=== PATIENT | male | born 1975 | race Caucasian/White ===

== ENCOUNTER 2017-12-30 00:32 | Emergency (ER) | payer OTHER, SELFPAY ==
[2017-12-30] MEDS ORDERED: Ketorolac Tromethamine 30 MG/ML VIAL ONE (00:57)
[2017-12-30 01:24] LABS: #Eosinphils 0.1 thou/uL (0.0-0.7); #Monocytes 0.6 thou/uL (0.11-0.59); #Neutrophils 6.7 thou/uL (1.40-6.50); %Basophils 0.3 % (0.0-1.0); %Eosinophils 1.1 % (0.0-10.0); %Lymphocytes 21.5 % (21.0-51.0); %Monocytes 6.7 % (0.0-10.0); %Neutrophils 70.3 % (42.0-75.0); Hemoglobin 16.2 g/dL (14.0-18.0); Mean Corpuscular HGB CONC 33.8 g/dL (32.0-36.0); Mean Corpuscular Hemoglobin 31.8 pg (27.0-31.0); Mean Platelet Volume 7.5 fL (7.4-10.4); Platelet Count 242 thou/uL (130-400); RBC Distribution Width 11.5 % (11.5-14.5); Red Blood Cell (RBC) Count 5.11 mill/uL (4.70-6.10); White Blood Cell (WBC) Count 9.5 thou/uL (4.8-10.8)
[2017-12-30 01:43] LABS: Bilirubin Negative (Negative); Blood, Urine Negative (Negative); Clarity CLEAR (Clear); Glucose, Urine (Dipstick) Negative (Negative); Leukocyte Negative (Negative); Nitrite Negative (Negative); Protein, Urine (Dipstick) Negative (Neg-Trace); Specific Gravity, Urine 1.007 (1.002-1.036); Urobilinogen 0.2 mg/dL (0.2-1.0)
[2017-12-30 01:45] LABS: ALT (SGPT) 16 U/L (8-55); AST (SGOT) 18 U/L (5-34); Alkaline Phosphatase 57 U/L (40-150); Anion Gap 16 mmol/L (10-20); BUN (Urea Nitrogen) 17 mg/dL (8.9-20.6); Bilirubin, Total 0.6 mg/dL (0.2-1.2); Calc. Creatinine Clearance 0 mL/min (70-130); Calcium 10.5 mg/dL (7.8-10.44); Carbon Dioxide 27 mmol/L (22-29); Chloride 104 mmol/L (98-107); Estimated GFR-MDRD 54; Globulin 3.1 g/dL (2.4-3.5); Glucose 110 mg/dL (70-105); Lipase 27 U/L (8-78); Potassium 3.8 mmol/L (3.5-5.1); Protein, Total 8.1 g/dL (6.0-8.3); Sodium 143 mmol/L (136-145)
--- NOTE | 2017-12-30 08:34 | CT ---
PRELIMINARY REPORT/[facility]/EMERGENTY AFTER-HOURS PROCEDURE CT Abdomen and Pelvis With Intravenous Contrast EXAM DATE/TIME: 12/30/2017 1:38 AM CLINICAL HISTORY: 42 years old, male; Right lower quadrant (rlq) abd pain started after dinner TECHNIQUE: Axial computed tomography images of the abdomen and pelvis with intravenous contrast. Coronal reformatted images were created and reviewed. COMPARISON: No relevant prior studies available. FINDINGS: Lower thorax: No acute findings. ABDOMEN: Liver: Normal. No mass. Gallbladder and bile ducts: Normal. No calcified stones. No ductal dilation. Pancreas: Normal. No ductal dilation. Spleen: Normal. No splenomegaly. Adrenals: Normal. No mass. Kidneys and ureters: Normal. No hydronephrosis. Stomach and bowel: Within the mid to right abdomen, multiple, mildly distended, fluid-filled small alessandra wel loops, some of which exhibit mild wall thickening consistent with an enteritis. Mild edema within portions of the adjacent mesentery. Fluid and air within a majority of the colon consistent with aldo rrhea. Moderately to severely distended stomach containing fluid, retained secretions, and a small am ount of air. Appendix: Normal appendix. PELVIS: Bladder: Unremarkable as visualized. Reproductive: Unremarkable as visualized. ABDOMEN and PELVIS: Intraperitoneal space: Minimal free fluid in the right abdomen, adjacent to the liver, and within the pelvis. Bones/joints: No acute fracture. No dislocation. Soft tissues: Small fat-containing umbilical hernia. Vasculature: Normal. No abdominal aortic aneurysm. Lymph nodes: Normal. No enlarged lymph nodes. IMPRESSION: 1. Within the mid to right abdomen, multiple, mildly distended, fluid-filled small bowel loops, some of which exhibit mild wall thickening consistent with an enteritis. Mild edema within portions of the adjacent mesentery. 2. Fluid and air within a majority of the colon consistent with diarrhea. 3. Minimal free fluid in the right abdomen, adjacent to the liver, and within the pelvis. 4. Moderately to severely distended stomach containing fluid, retained secretions, and a small amount of air. 5. Normal appendix. Thank you for allowing us to participate in the care of your patient. Dictated and Authenticated by: Bhaarth Loomis MD 12/30/2017 2:27 AM Central Time ([place] & [place]) FINAL REPORT CT ABDOMEN WITH CONTRAST CT PELVIS WITH CONTRAST: Date: 12/30/17 HISTORY: Right lower quadrant pain. COMPARISON: None. FINDINGS: This report is in agreement with the preliminary report by Mary. There is nonspecific perihepatic iris e fluid. There is a normal caliber appendix. There are multiple prominent proximal to mid small bowel loops. Fluid attenuation in the colon is noted. There is free fluid in the pelvis. IMPRESSION: 1. Mildly prominent small bowel loops, worrisome for enteritis. There is stranding of the adjacent m esentery. 2. Fluid attenuation in segments of the colon. Correlate for colitis with resultant diarrhea. 3. Free fluid in the abdomen or pelvis. 4. Normal caliber appendix. POS: [facility]
[2017-12-30] MEDS ORDERED: ISOVUE-370 76%-LOCM 1 ML ONE (16:04)
== END 2017-12-30 02:49 | disposition home or self-care (01) ==
LOC: ERS 00:32
DX: K52.9 Noninfective gastroenteritis and colitis, unspecified (principal); E03.9 Hypothyroidism, unspecified; Z79.899 Other long term (current) drug therapy
CPT/HCPCS: 74177; 80053; 81003; 83690; 85025; 96374; J1885